=== PATIENT | male | born 1975 | race Caucasian/White ===

== ENCOUNTER 2021-01-12 11:24 | Emergency (ER) | payer OTHER ==
[~2021-01-12] VITALS: Ht 175.3 cm; Wt 90.9 kg
[2021-01-12 12:50] VITALS: BP 120/85
== END 2021-01-12 13:52 | disposition home or self-care (01) ==
LOC: ER 11:24
DX: Z02.89 Encounter for other administrative examinations (principal); I10 Essential (primary) hypertension; Z72.89 Other problems related to lifestyle
CPT/HCPCS: 99281

== ENCOUNTER 2023-03-14 17:16 | Emergency (ER) | payer SELFPAY ==
[~2023-03-14] VITALS: Ht 175.3 cm; Wt 75.1 kg
[2023-03-14 17:23] VITALS: BP 157/126; PULSE 112; RESP 16; TEMP 98.1; O2SAT 97
== END 2023-03-14 20:19 | disposition left against medical advice (07) ==
LOC: ER 17:16
DX: F10.129 Alcohol abuse with intoxication, unspecified (principal); R25.1 Tremor, unspecified; Z53.21 Procedure and treatment not carried out due to patient leaving prior to being seen by health care provider
CPT/HCPCS: 99281